=== PATIENT | female | born 1990 | race Two or more races ===

== ENCOUNTER 2021-04-24 09:46 | Emergency (ER) | payer OTHER ==
[~2021-04-24] VITALS: Ht 170.2 cm; Wt 131.5 kg
== END 2021-04-24 14:33 | disposition home or self-care (01) ==
LOC: ER 09:46
DX: B34.9 Viral infection, unspecified (principal); R00.2 Palpitations

== ENCOUNTER 2022-05-22 12:32 | Emergency (ER) | payer OTHER ==
[~2022-05-22] VITALS: Ht 170.2 cm; Wt 140.6 kg
== END 2022-05-22 15:46 | disposition home or self-care (01) ==
LOC: ER 12:32
DX: N94.6 Dysmenorrhea, unspecified (principal)